=== PATIENT | female | born 1980 | race Hispanic/Latino ===

== ENCOUNTER 2020-05-28 13:09 | Emergency (ER) | payer SELFPAY ==
[2020-05-28 13:34] VITALS: BP 148/103; PULSE 97; RESP 20; TEMP 36.2; O2SAT 97
--- NOTE | 2020-05-28 13:42 | ED.GENADULT ---
HPI - General Adult General Chief complaint: Upper Respiratory Infection Stated complaint: Congestion, Ear Ache Time Seen by Provider: 05/28/20 13:35 Source: patient and RN notes reviewed Mode of arrival: ambulatory Limitations: no limitations History of Present Illness HPI narrative: 40-year-old female presents with complaints of upper respiratory infection, itching ears, some facial congestion, facial pressure, and intermittent cough for 1 day. Yordan reports symptoms are increasing throughout the day. No treatment. No facial swelling. Dry cough no chest congestion. Nasal congestion and rhinorrhea. Burning throat. Burning is bilateral. Irritation with swallow. No high fevers, drooling, neck or throat swelling. No voice change. No nausea, vomiting, or abdominal pain. Tolerating liquids well. Denies dyspnea, difficulty swallowing, jaw pain, dental pain, foreign body sensation, and rash. No chest pain or shortness of breath. The patient reports she have not been diagnosed with COVID-19. The patient reports she is not waiting for the results of a COVID-19 lab test. The patient reports she do not have weakness or fatigue. The patient reports she do not have any loss of taste or smell, and diarrhea. Denies recent traveling. Denies concerns for COVID-19 or exposures been home with limited outdoor exposure except for essential household needs, work, and return home. At this time, patient is not suspected of having COVID-19. Some parts of this dictation were generated by voice recognition software and may contain typographical and/or grammatical inaccuracies. Related Data Home Medications Medication Instructions Recorded Confirmed levothyroxine 175 mcg PO DAILY 05/28/20 05/28/20 Allergies Allergy/AdvReac Type Severity Reaction Status Date / Time No Known Allergies Allergy Verified 05/28/20 13:29 Review of Systems Review of Systems: Narrative: CONSTITUTIONAL: Denies fever, chills, sweats. EYES: Denies visual changes, redness, discharge. ENT: Complains of rhinorrhea, congestion, facial congestion and pressure. Denies otalgia, sore throat. CARDIOVASCULAR: Denies chest pain, palpitations, edema. RESPIRATORY: Denies dyspnea, wheezing. Complains of cough. GASTROINTESTINAL: Denies abdominal pain, nausea, vomiting, diarrhea. SKIN: Denies rash or itching. MUSCULOSKELETAL: Denies acute back pain, joint pain, or myalgia. NEUROLOGIC: Denies numbness or focal weakness. PSYCHIATRIC: Denies anxiety or depression. All other systems reviewed & are unremarkable except as noted in HPI and below. [facility] Past Medical History Medical History (Updated 05/28/20 @ 16:56 by PRESLEY Wise) Hypothyroidism Miscarriage X2 Surgical History Surgical History (Updated 05/28/20 @ 16:56 by PRESLEY Wise) History of bilateral salpingo-oophorectomy History of cholecystectomy Hx of appendectomy Family History Family History (Updated 05/28/20 @ 16:57 by PRESLEY Wise) Father Diabetes mellitus Mother Diabetes mellitus Social History Social History (Updated 05/28/20 @ 16:58 by PRESLEY Wise) Smoking status: Former smoker Tobacco type: cigarettes Second hand tobacco smoke exposure: No Smoking end date: 03/06/17 Alcohol intake: never Substance use: never Living arrangements: alone Occupation/Education: occupation Gender identity (if verbalized by the patient): Female Sexual Orientation (if Verbalized by the Patient): Straight or Heterosexual Comments At time of signature, agree with nurse past medical, surgical, social, and family history. There is no relevant family history pertinent to the presenting complaint. Exam Narrative: Exam Narrative: GENERAL: This is a well-nourished, well-developed patient, in no apparent distress. Talks in full sentences and ambulates with steady gait without dyspnea. HEAD: Normocephalic, atraumatic. EYES: PERRL. Sclera clear/white
--- NOTE | 2020-05-28 13:48 | PC.NURSE ---
Pt refused all tests until seen by provider,she just wants treated for a sinus infection and go back to work. Pt does not want to pay for tests if she is not going to be treated. I informed pt she can refuse any test she does not want and I can not guarantee she will be treated until provider sees her and assess her. Pt refuses rapid strep, flu and Covid test at this time until she is seen by provider.
== END 2020-05-28 14:03 | disposition home or self-care (01) ==
PROVIDERS: Emergency Provider Nurse Practitioner Family
DX: J01.90 Acute sinusitis, unspecified (principal); H65.92 Unspecified nonsuppurative otitis media, left ear; E03.9 Hypothyroidism, unspecified
CPT/HCPCS: 99203; G0463